=== PATIENT | female | born 1995 | race Caucasian/White ===

== ENCOUNTER 2017-01-26 04:20 | Inpatient (IN) | payer OTHER ==
[~2017-01-26] VITALS: Ht 167.6 cm; Wt 96.6 kg
--- NOTE | ~2017-01-26 | ENPV ---
Vascular Lower Extremities DVT Study Procedure Demographics Patient Name SOPHIE BORGES Date of Study 01/27/2017 Patient Number [id number] Gender Female Date of 1995 Age 21 Visit Number [id number] Height 66 Accession Number [id number] Weight 174 Referring Jose Manuel Hernandez Interpreting Marco Rush MD Physician Physician Mary Lemus MD Physician Ordering Physician Jose Manuel Hernandez Financial Advocate Teasel Gig Operator Latha Feldman BS, RT Conclusions Summary No evidence of deep vein thrombosis or superficial thrombophlebitis in the lower extremities bilaterally . Procedure Type of Study: Veins:Lower Extremities DVT Study, Venous Duplex Lower Extremity Bilateral. Indications for Study:Trauma. Additional Indications:Immobility Patient Status:Routine. Study Location:Inpatient Portable. Technical Quality:Adequate visualization. Velocities are measured in cm/s ; Diameters are measured in cm Right Lower Extremities DVT Study Measurements Right 2D and Doppler Measurements + + + + +------+------+ + !Location !Visualized!Compressibility!Thrombosis!Signal!Reflux!Reflux ! ! ! ! ! ! ! !(sec) ! + + + + +------+------+ + !GSV Thigh !Yes !Yes !None !Phasic!No ! ! + + + + +------+------+ + !Common !Yes !Yes !None !Phasic!No ! ! !Femoral ! ! ! ! ! ! ! + + + + +------+------+ + !Prox !Yes !Yes !None !Phasic!No ! ! !Femoral ! ! ! ! ! ! ! + + + + +------+------+ + !Mid Femoral!Yes !Yes !None !Phasic!No ! ! + + + + +------+------+ + !Dist !Yes !Yes !None !Phasic!No ! ! !Femoral ! ! ! ! ! ! ! + + + + +------+------+ + !Popliteal !Yes !Yes !None !Phasic!No ! ! + + + + +------+------+ + !Gastroc !Yes !Yes !None !Phasic!No ! ! + + + + +------+------+ + !PTV !Yes !Yes !None !Phasic!No ! ! + + + + +------+------+ + !Peroneal !Yes !Yes !None !Phasic!No ! ! + + + + +------+------+ + Left Lower Extremities DVT Study Measurements Left 2D and Doppler Measurements + + + + +------+------+ + !Location !Visualized!Compressibility!Thrombosis!Signal!Reflux!Reflux ! ! ! ! ! ! ! !(sec) ! + + + + +------+------+ + !GSV Thigh !Yes !Yes !None !Phasic!No ! ! + + + + +------+------+ + !Common !Yes !Yes !None !Phasic!No ! ! !Femoral ! ! ! ! ! ! ! + + + + +------+------+ + !Prox !Yes !Yes !None !Phasic!No ! ! !Femoral ! ! ! ! ! ! ! + + + + +------+------+ + !Mid Femoral!Yes !Yes !None !Phasic!No ! ! + + + + +------+------+ + !Dist !Yes !Yes !None !Phasic!No ! ! !Femoral ! ! ! ! ! ! ! + + + + +------+------+ + !Popliteal !Yes !Yes !None !Phasic!No ! ! + + + + +------+------+ + !Gastroc !Yes !Yes !None !Phasic!No ! ! + + + + +------+------+ + !PTV !Yes !Yes !None !Phasic!No ! ! + + + + +------+------+ + !Peroneal !Yes !Yes !None !Phasic!No ! ! + + + + +------+------+ + Signature dtt: RAHEEM FERRARI dtpatricia: 01/27/17 1428 Physician Self Edit
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
--- NOTE | ~2017-01-26 | ENPV ---
Vascular Lower Extremities DVT Study Procedure Demographics Patient Name SOPHIE BORGES Date of Study 01/30/2017 Patient Number [id number] Gender Female Date of 1995 Age 21 Visit Number [id number] Height 66 Accession Number [id number] Weight 174 Referring Larry Harden MD Interpreting Marco Rush MD Physician Jose Manuel Hernandez Physician Mary Lemus MD Physician Ordering Physician Mary Wynne MD Vehicle Body Maker Antionettegrace Hardik T, [facility] Conclusions Summary Normal venous duplex examination of the legs bilaterally with normal venous Doppler signals noted throughout. No evidence of thrombophlebitis is noted bilaterally in the deep and superficial veins of the legs. Small calf thrombi cannot be excluded. Procedure Type of Study: Veins:Lower Extremities DVT Study, Venous Duplex Lower Extremity Bilateral. Indications for Study:Extended bedrest and Trauma. Appropriate Use Criteria:6 Patient Status:Routine. Study Location:Inpatient Portable. Technical Quality:Adequate visualization. Velocities are measured in cm/s ; Diameters are measured in cm Right Lower Extremities DVT Study Measurements Right 2D and Doppler Measurements + + + + +------+------+ + !Location !Visualized!Compressibility!Thrombosis!Signal!Reflux!Reflux ! ! ! ! ! ! ! !(sec) ! + + + + +------+------+ + !GSV Thigh !Yes !Yes !None !Phasic! ! ! + + + + +------+------+ + !Common !Yes !Yes !None !Phasic! ! ! !Femoral ! ! ! ! ! ! ! + + + + +------+------+ + !Prox !Yes !Yes !None !Phasic! ! ! !Femoral ! ! ! ! ! ! ! + + + + +------+------+ + !Mid Femoral!Yes !Yes !None !Phasic! ! ! + + + + +------+------+ + !Dist !Yes !Yes !None !Phasic! ! ! !Femoral ! ! ! ! ! ! ! + + + + +------+------+ + !Popliteal !No ! ! ! ! ! ! + + + + +------+------+ + !PTV !Yes !Yes !None !Phasic! ! ! + + + + +------+------+ + !Peroneal !Yes !Yes !None !Phasic! ! ! + + + + +------+------+ + Left Lower Extremities DVT Study Measurements Left 2D and Doppler Measurements + + + + +------+------+ + !Location !Visualized!Compressibility!Thrombosis!Signal!Reflux!Reflux ! ! ! ! ! ! ! !(sec) ! + + + + +------+------+ + !GSV Thigh !Yes !Yes !None !Phasic! ! ! + + + + +------+------+ + !Common !Yes !Yes !None !Phasic! ! ! !Femoral ! ! ! ! ! ! ! + + + + +------+------+ + !Prox !Yes !Yes !None !Phasic! ! ! !Femoral ! ! ! ! ! ! ! + + + + +------+------+ + !Mid Femoral!Yes !Yes !None !Phasic! ! ! + + + + +------+------+ + !Dist !Yes !Yes !None !Phasic! ! ! !Femoral ! ! ! ! ! ! ! + + + + +------+------+ + !Popliteal !Yes !Yes !None !Phasic! ! ! + + + + +------+------+ + !PTV !Yes !Yes !None !Phasic! ! ! + + + + +------+------+ + !Peroneal !Yes !Yes !None !Phasic! ! ! + + + + +------+------+ + Signature dtt: RAHEEM FERRARI dtpatricia: 01/30/17 1015 Physician Self Edit
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
--- NOTE | ~2017-01-26 | ECHO ---
Transthoracic Echocardiography Report (TTE) Demographics Patient Name SOPHIE BORGES Date of Study 01/27/2017 Patient Number [id number] Visit Number [id number] Date of 1995 Room Number G6201 Accession Number [id number] Gender Female Age 21 year(s) Referring Larry Harden MD Hand Cigar Making Supervisor Savanah Dye RVT, Physician RDCS Physician Interpreting Orin Fajardo MD Candy Attendant Physician Supervising Ordering Physician Mary Lemus MD, MD/P Nurse Stress General Studies Program Chair Conclusions Contractility Score Summary Normal Left Ventricular contractility was noted. Summary Very limited study due to poor visualize. The estimated left ventricular ejection fraction is 60%. The left ventricle is normal in size . No significant valvular abnormalities. Procedure Type of Study TTE procedure:2D Echocardiogram, Echo Limited w/o Contrast. Procedure Date Date: 01/27/2017 Start: 01:31 PM Study Location: Inpatient Portable Technical Quality: Limited visualization due to patient on ventilator. Indications:Shock. Appropriate Use Criteria: 8 Patient Status: Routine Rhythm: Sinus tachycardia HR: 135 bpm BP: 125/56 mmHg M-Mode/2D Measurements EF Estimated: 60 % Doppler Measurements MV Peak E-Wave: 0.35 m/s MV Peak A-Wave: 0.61 m/s MV E/A Ratio: 0.57 Findings Left Ventricle The left ventricle is normal in size . Right Ventricle Normal right ventricular size and function. Left Atrium Normal left atrial size. There is no evidence of patent foramen ovale or atrial septal defect by color Doppler. Right Atrium Normal right atrial size. Mitral Valve Normal mitral valve structure and function. Aortic Valve Normal aortic valve structure and function. Tricuspid Valve Normal tricuspid valve structure and function. Pulmonic Valve Normal pulmonic valve structure and function. Pericardial Effusion Trivial circumferential pericardial effusion. Miscellaneous Visualized portions of the aortic root and ascending aorta appear normal in size. VERY POOR AND LIMITED STUDY Pleural Effusion No evidence of pleural effusion. Contractility Score LV regional wall motion:(0-Non visualized 1-Normal 2-Hypokinesis 3-Akinesis 4-Dyskinesis 5-Aneurysm) Signature dtt: Scotty Sr (cardio) dtd: 01/27/17 1331 Physician Self Edit
--- NOTE | ~2017-01-26 | OR ---
PATIENT'S NAME: SOPHIE BORGES [facility] AGE: 21 Y [address] ROOM: [address] [address] LOCATION: CU ADMIT DATE: 01/26/2017 OR/Procedure Report DISCHARGE DATE: FAMILY PHYSICIAN: ISAAC MARQUEZ ATTENDING PHYSICIAN: Christopher Choi SURGEON: Yolande Castillo MD MARBLE INSTALLER: DATE OF PROCEDURE: 01/30/2017 PREOPERATIVE DIAGNOSIS: Severe head injury. POSTOPERATIVE DIAGNOSIS: Severe head injury. OPERATION PROPOSED AND PERFORMED: 1. Right frontal decompressive craniectomy. 2. Duraplasty. 3. Insertion of Codman fiberoptic ICP sensor. 4. Removal of Licox brain oxygen monitor. 5. Removal of the right ventricular catheter. DESCRIPTION OF PROCEDURE: Under general anesthesia, the patient was positioned supine on a horseshoe headrest with the headrest slanted so that only the occipital portion that is resting on the horseshoe primarily, especially, on the left side where she had a decompressive frontotemporoparietal craniectomy. After positioning her, the right frontal region was prepped and draped in the usual manner. Prior to draping, we removed the Licox bolt and also removed the left lateral ventricular catheter at the level of the scalp. Next, a curvilinear incision was then carried out extending from the frontal region going posteriorly, incorporating the incision for the Licox and ventricular catheter and then going posteriorly curving inferiorly into the area just above the right ear. The ventricular catheter was then removed. Next, the pericranium as well as the temporalis muscle and fascia were reflected as a unit. Multiple noel holes were then carried out in the temporofrontal regions trying to be as close to the midline as possible. A free bone flap was then fashioned out. On removing the free bone flap, the dura was very very tight indicating significant swelling of the hemisphere, and we went ahead and opened the dura in fashion, and on doing this, the brain did pout out. Next, we then got a large piece of dural repair, suturing the dural repair to the edges of the dura leaving a small space anteriorly. Next, in the anterior space, we were going to put in the brain oxygen monitor as well as the ICP monitor; however, the brain oxygen monitor could not be put in. The sheath around the monitor was too stiff, especially, as there was no bone on the dura. We consequently abandoned using the Licox tunneled in brain oxygen monitor and just went ahead and put in the Codman fiberoptic ICP monitor in the right frontal region anteriorly. Next, PATIENT'S NAME: SOPHIE BORGES [facility] AGE: 21 Y [address] ROOM: [place] [address] LOCATION: GICU ADMIT DATE: 01/26/2017 OR/Procedure Report DISCHARGE DATE: FAMILY PHYSICIAN: ISAAC MARQUEZ. ATTENDING PHYSICIAN: Christopher Choi we initially wanted to close the wound in 2 layers, however, the brain was quite swollen and consequently we used 0 Prolene and 2-0 Nurolon to close the scalp in 1 layer. The ICP sensor which was brought out through a separate stab wound was sutured to the scalp. The patient tolerated the procedure well and the ICPs were recorded. Ranged from 5 to 15. The patient was stable throughout the procedure. PREAMBLE: This young lady, who has severe head injury, yesterday had a ventricular catheter put in the left lateral ventricle in the hope that a drainage of CSF will enable us to control the intracranial pressure. Unfortunately, the ventricle was decompressed and consequently the CSF drainage was not copious as one would not have wanted. As a result of this, she had multiple medical management using hypertonic saline, using mannitol, using hyperventilation as best we could. Unfortunately, we could not get the pCO2 down primarily because she then developed what was looking like an early ARDS. In light of all the above problems that we have had and the situation where she had episodes of ICPs going above 30 and that we were at maximum using hypertonic solutions because serum osmolality was quite high and her sodium was equally high, and she had developed renal failure. We consequently elected to go ahead and do a decompressive craniectomy on the right side in the hope that that would also help reduce the intracranial pressure which would then make it much easier to get an adequate cerebral perfusion pressure. I should point out though that throughout this periods of increased intracranial pressure, the perforation pressures were above 60 all the while. MD KEV RUANO/modl /[id number] d: 01/31/17 0144 t: 02/28/17 1218, OPERATIVE SUMMARY
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
--- NOTE | ~2017-01-26 | OR ---
PATIENT'S NAME: SOPHIE BORGES [facility] AGE: 21 Y [address] ROOM: [address] [address] LOCATION: [facility] ADMIT DATE: 01/26/2017 OR/Procedure Report DISCHARGE DATE: FAMILY PHYSICIAN: PHYSICIAN, UNKNOWN ATTENDING PHYSICIAN: Christopher Choi SURGEON: Yolande Castillo MD EXECUTIVE ASSOCIATE: DATE OF PROCEDURE: 01/26/2017 PREOPERATIVE DIAGNOSIS: Severe head injury with increase in intracranial pressure. POSTOPERATIVE DIAGNOSIS: Severe head injury with increase in intracranial pressure. OPERATION PROPOSED: 1. Left frontotemporoparietal decompressive craniectomy. 2. Duraplasty. OPERATION PERFORMED: 1. Decompressive left frontotemporoparietal craniectomy. 2. Duraplasty. 3. Evacuation of a left acute subdural hematoma in the frontal region. 4. Evacuation of a thin film of subdural hematoma also in the frontoparietal area. DESCRIPTION OF PROCEDURE: Under general anesthesia, the patient was positioned prone. The head was tilted to the right. The left frontotemporoparietal occipital region was shaved, prepped, and draped in the usual fashion. Next, a large question brittney incision was carried out extending from the zygoma superiorly and posteriorly and then anteriorly to the frontal region and encompassing the temporal, frontal, and parietal regions. The temporalis muscle and fascia was incised with Bovie as well as the pericranium and this was reflected as a unit with the scalp. Next, multiple noel holes were carried out and the free bone flap was then removed. The finding here on reflecting the scalp, it did have a diastatic fracture involving the coronal suture extending all the way across to the midline and going all the way down to the base of the skull. Having turned the bone flap, there was an epidural hematoma in the frontal region, this was easily evacuated, and on opening the dura to do duraplasty, there was a thin film of subdural hematoma, which we evacuated, and after that was done, we then got a large piece of dural repair; and using the dural repair, we added this to the patient's dura so as to create extra room for the brain to swell into. After we had finished the duraplasty, we controlled the hematoma with the hemorrhage with bipolar cautery as well as pieces of Surgicel tucked under the edges of the bone in PATIENT'S NAME: SOPHIE BORGES [facility] AGE: 21 Y [address] ROOM: [address] [address] LOCATION: [facility] ADMIT DATE: 01/26/2017 OR/Procedure Report DISCHARGE DATE: FAMILY PHYSICIAN: PHYSICIAN, UNKNOWN ATTENDING PHYSICIAN: Christopher Choi order to stop any epidural ooze from the dura postdecompression. After we had been satisfied that this had been achieved, we then sutured the scalp as a single layer using 3-0 Nurolon continuous mattress sutures. Following the end of the procedure, the intracranial pressure was reading 6 cm of water both the sensor in the Licox as well as the Codman ventricular ICP sensor. The patient tolerated the procedure well and was taken back to the Intensive Care Unit. The preamble here is that the patient who had earlier this morning had a right frontal ventriculostomy put in along with an insertion of the Licox started getting into trouble after she went on to have a CT scan of the brain. The ICP at one stage went up to 30 though when we started this morning after we inserted the ICP monitor was all reading 6 and there was not too much CSF left to be drained primarily because the CT scan of the brain that was done at that time showed that the ventricle was completely decompressed as it was just barely visible. As a result of the fact that the ICP had gradually climbed up, we were having to literally leave the ventricle open; and at this stage, we were not getting much fluid out of the ventricle and the ICPs was approaching 20, I elected to go ahead and do a decompressive craniectomy with duraplasty so as to at least create room for the brain to swell into and thus reduce the intracranial pressure. That was the rationale for bringing her back to the operating room to do what we did. MD KEV RUANO/gisell /[id number] d: 01/27/17 0231 t: 02/28/17 1213, OPERATIVE SUMMARY
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
[2017-01-26 04:59] LABS: HEMOGLOBIN 14.4 g/dL (11.0-15.0); MCH 29.1 pg (27.0-34.0); MCV 80.8 fl (83.0-98.0); MPV 8.7 fl (9.4-12.4); PLATELET COUNT 224 K/uL (150-450); RBC 4.95 M/uL (3.50-5.00); RDW-CV 15.9 % (11.9-14.6)
[2017-01-26 05:06] LABS: WBC 26.4 K/uL (4.0-11.0)
[2017-01-26 05:16] LABS: INR - (THERAPEUTIC) 1.28 (0.92-1.07); PROTIME 13.5 SECONDS (9.8-11.4); PTT 26 SECONDS (25-32)
[2017-01-26 05:23] LABS: BICARBONATE 19.2 mmol/L (18.0-23.0); PCO2 40 mmHg (35-45); PO2 96 mmHg (80-90)
[2017-01-26 05:24] LABS: BLOOD UREA NITROGEN 11 mg/dL (6-24); CHLORIDE 109 mMol/L (96-110); CREATININE 0.8 mg/dL (0.5-1.1); ESTIMATED GFR (MDRD EQUATION) > 60; SODIUM 139 mEq/L (135-145)
[2017-01-26 05:27] LABS: ABSOLUTE NEUTROPHIL CT (ANC) 22.2 K/uL (1.8-7.8); BANDED NEUTROPHIL # 4.8 K/uL (0.0-0.1); BANDED NEUTROPHILS % 18 %; LYMPHOCYTE # 2.4 K/uL (0.8-4.0); LYMPHOCYTE % 9 %; MONOCYTE # 1.6 K/uL (0.0-1.0); SEGMENTED NEUTROPHIL # 17.4 K/uL (1.8-7.8); SEGMENTED NEUTROPHIL % 66 %
[2017-01-26 08:01] LABS: BICARBONATE 20.1 mmol/L (18.0-23.0); LACTATE 3.9 mEq/L (0.50-1.60); PCO2 39 mmHg (35-45)
[2017-01-26 08:03] LABS: BASOPHIL % 0.1 %; HEMOGLOBIN 10.5 g/dL (11.0-15.0); IMMATURE GRANULOCYTE # 0.2 K/uL (0.0-0.3); LYMPHOCYTE # 1.1 K/uL (0.8-4.0); LYMPHOCYTE % 4.4 %; MCV 81.1 fl (83.0-98.0); MONOCYTE # 2.2 K/uL (0.0-1.0); MONOCYTE % 9.1 %; MPV 8.6 fl (9.4-12.4); NEUTROPHIL # (ANC) 20.4 K/uL (1.8-7.8); NEUTROPHIL % 85.4 %; NRBC % 0.1 /100WBC (0-0.00); PLATELET COUNT 200 K/uL (150-450); RDW-CV 16.3 % (11.9-14.6)
[2017-01-26 08:04] LABS: PO2 139 mmHg (80-90)
[2017-01-26 08:06] LABS: HEMATOCRIT 29.2 % (33.0-46.0); MCH 29.2 pg (27.0-34.0); WBC 23.9 K/uL (4.0-11.0)
[2017-01-26 08:13] LABS: INR - (THERAPEUTIC) 1.4 (0.92-1.07); PROTIME 14.8 SECONDS (9.8-11.4)
[2017-01-26 08:17] LABS: ALBUMIN 2.4 gm/dL (3.5-5.0); ALK PHOS 47 IU/L (33-138); ALT 122 IU/L (12-78); AST 180 IU/L (10-40); BLOOD UREA NITROGEN 10 mg/dL (6-24); CHLORIDE 115 mMol/L (96-110); CO2 20 mMol/L (22-32); ESTIMATED GFR (MDRD EQUATION) > 60; MAGNESIUM 2.1 mg/dL (1.8-2.6); POTASSIUM 3.9 mMol/L (3.7-5.1); TOTAL BILIRUBIN 0.8 mg/dL (0.0-1.5)
[2017-01-26 08:26] LABS: ANION GAP 15.9 (10.0-19.0); SODIUM 147 mMol/L (135-145); TOTAL PROTEIN 4.3 g/dL (6.0-8.4)
[2017-01-26 08:36] LABS: BICARBONATE 17.7 mmol/L (18.0-23.0); PCO2 41 mmHg (35-45); PO2 87 mmHg (80-90)
[2017-01-26 08:37] LABS: SODIUM 139 mEq/L (135-145)
[2017-01-26] MEDS ORDERED: ADVIL200 MG PO (12:17)
[2017-01-26] MEDS ORDERED: TUMS REGULAR ST1 TAB PO (12:18)
[2017-01-26 13:03] LABS: PCO2 40 mmHg (35-45)
[2017-01-26 13:08] LABS: BICARBONATE 14.9 mmol/L (18.0-23.0); PO2 64 mmHg (80-90)
[2017-01-26 13:09] LABS: LACTATE 8.3 mEq/L (0.50-1.60)
[2017-01-26 13:16] LABS: ANION GAP 19.9 (10.0-19.0); MAGNESIUM 3.1 mg/dL (1.8-2.6); POTASSIUM 4.9 mMol/L (3.7-5.1)
[2017-01-26 16:17] LABS: PO2 71 mmHg (80-90)
[2017-01-26 16:22] LABS: BICARBONATE 20.8 mmol/L (18.0-23.0); PCO2 57 mmHg (35-45)
[2017-01-26 16:23] LABS: LACTATE 9.7 mEq/L (0.50-1.60)
[2017-01-26 16:31] LABS: CREATININE 1.3 mg/dL (0.5-1.1); POTASSIUM 4.5 mMol/L (3.7-5.1)
[2017-01-26 16:32] LABS: ANION GAP 19.5 (10.0-19.0); CALCIUM 6.3 mg/dL (8.5-10.5)
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
--- NOTE | 2017-01-26 19:17 | NUR ---
Significant Event: Patient intubated, FIO2 @ 100%.Was on fentanyl gtt, now discontinued and pentobarb started to keep at 3mcg/kg/h. BIS monitor initiated just prior to second OR of the day. Came to ICU at 0717 from OR ICP/ventric placed. Opened ventric several times today to keep ICP<15. Drained total of 27 light pink tinged CSF. PRN vecuronium given multiple times. Slight spontaneous movement in lower extremities with painful stimuli only. Overbreathes set vent rate at times. Does not open eyes/or follow commands. Stopped withdrawing to painful stimuli after 1200 assessment. CPP to keep 60-80, multile checo boluses given. Checo gtt at 2mcg/kg/min, levophed gtt at .4mcg/kg/min. 5 1L isolate fluid boluses given. PRN mannitol given x1. Went to CT today. Bronchoscopy at bedside done. Slightly coarse-coarse lung sounds throughout. ETCO2 18-30. PIP 22-27. Two ICP/VEntric sites, one via codman and one via bolt. on lipcott to keep ptbo2 >20 and temp 36-36.6. Rare bowel sounds. No BM. Cates patent, increased UOP, see sliding scale ddavp orders. OGT to LIS, light brown secretions noted.Highland traction 5lb to right leg. Did not turn patinet do to instability. CVP 4-10. Patient went back to OR for bone flap. doing Right femur pinning while patient is in OR for bone flap.PRN tylenol given x1 for temp 37.8degC. Follow up:continue to monitor.CT of right hip order in, still needs done, patient to unstable to complete today, Dr. Klein aware
[2017-01-26 21:39] LABS: BICARBONATE 22.6 mmol/L (18.0-23.0); PCO2 54 mmHg (35-45); PO2 57 mmHg (80-90)
[2017-01-26 21:50] LABS: BICARBONATE 20.4 mmol/L (18.0-23.0); PCO2 51 mmHg (35-45); PO2 61 mmHg (80-90); POTASSIUM 4.2 mEq/L (3.7-5.1); SODIUM 153 mEq/L (135-145)
[2017-01-26 21:51] LABS: BICARBONATE 19.9 mmol/L (18.0-23.0); PCO2 52 mmHg (35-45); PO2 59 mmHg (80-90); POTASSIUM 3.4 mEq/L (3.7-5.1); SODIUM 154 mEq/L (135-145)
[2017-01-26 21:55] LABS: CREATININE 1.3 mg/dL (0.5-1.1); MAGNESIUM 2.5 mg/dL (1.8-2.6); PHOSPHORUS 4.4 mg/dL (2.5-4.9)
[2017-01-26 21:56] LABS: ALBUMIN 1.6 gm/dL (3.5-5.0); CALCIUM 7.1 mg/dL (8.5-10.5)
[2017-01-27 03:24] LABS: PCO2 52 mmHg (35-45)
[2017-01-27 03:30] LABS: BICARBONATE 29.4 mmol/L (18.0-23.0); PO2 49 mmHg (80-90)
[2017-01-27 03:46] LABS: CALCIUM 7.5 mg/dL (8.5-10.5); CREATININE 1.2 mg/dL (0.5-1.1); MAGNESIUM 2.5 mg/dL (1.8-2.6)
[2017-01-27 03:47] LABS: TOTAL BILIRUBIN 0.6 mg/dL (0.0-1.5); TOTAL PROTEIN 4.1 g/dL (6.0-8.4)
[2017-01-27 03:58] LABS: HEMOGLOBIN 11.4 g/dL (11.0-15.0); MCH 29.7 pg (27.0-34.0); MCHC 35.6 gm/dL (32.0-36.5); MCV 83.3 fl (83.0-98.0); MPV 10.8 fl (9.4-12.4); RBC 3.84 M/uL (3.50-5.00)
[2017-01-27 04:02] LABS: WBC 30.1 K/uL (4.0-11.0)
[2017-01-27 04:03] LABS: INR - (THERAPEUTIC) 1.36 (0.92-1.07); PLATELET COUNT 80 K/uL (150-450); PROTIME 14.3 SECONDS (9.8-11.4); PTT 38 SECONDS (25-32)
--- NOTE | 2017-01-27 05:04 | NUR ---
Patient was in surgery until 21:00 this shift. Patient was placed back on the vent after surgery. FiO2 currently 100% for O2 sats of 86-89%. PEEP was increased to 15 this shift due to low PO2 level on ABG lab draw. ETT was secured with an ETAD 24cm at the teeth. ETCO2 was 17-18 this shift. Breathsounds slightly coarse throughout bilaterally. Suctioning small to moderate thick white secretions. Will continue to monitor patient.
[2017-01-27 05:19] LABS: ABSOLUTE NEUTROPHIL CT (ANC) 25.6 K/uL (1.8-7.8); BANDED NEUTROPHILS % 40 %; LYMPHOCYTE # 3.3 K/uL (0.8-4.0); LYMPHOCYTE % 11 %; MONOCYTE # 1.2 K/uL (0.0-1.0); SEGMENTED NEUTROPHIL # 13.6 K/uL (1.8-7.8); SEGMENTED NEUTROPHIL % 45 %
--- NOTE | 2017-01-27 06:47 | NUR ---
patient is in induced comma with pentobarb at 1 meq/kg/h,pupils are unequal in size,rt is sluggish,lt is fixed,clear upper lungs sound diminished on the bases,a/c vent mode peep=15,gqv3=531%,w4htm=90%,dr velazquez was updated,abd is soft no bowel movement,bowel sounds are presented. FOLLOW UP:patient's family was updated on am by dr bonner on the severity of patient's condition,keep monitoring neuro and hemodynamic status closely
[2017-01-27 08:26] LABS: BICARBONATE 32.6 mmol/L (18.0-23.0); PCO2 48 mmHg (35-45)
[2017-01-27 08:30] LABS: PO2 41 mmHg (80-90)
[2017-01-27 10:14] LABS: BICARBONATE 32.1 mmol/L (18.0-23.0); PCO2 53 mmHg (35-45)
[2017-01-27 10:15] LABS: PO2 55 mmHg (80-90)
[2017-01-27 12:13] LABS: BICARBONATE 33.7 mmol/L (18.0-23.0); PCO2 52 mmHg (35-45); PO2 56 mmHg (80-90)
[2017-01-27 12:20] LABS: LACTATE 6.6 mEq/L (0.50-1.60)
[2017-01-27 12:28] LABS: MAGNESIUM 2.6 mg/dL (1.8-2.6)
--- NOTE | 2017-01-27 12:53 | NUR ---
Chart Reviewed. Family is not in the room at this time. Will continue to follow.
[2017-01-27 15:05] LABS: ANION GAP 10.9 (10.0-19.0); POTASSIUM 3.9 mMol/L (3.7-5.1)
--- NOTE | 2017-01-27 17:02 | NUR ---
SIGNIFICANT EVENT: PATIENT ON PENTOBARBITAL DRIP INFUSING AT 1 MCG/KG/HR. PATIENT DOES NOT OPEN EYES TO PAIN, VOICE, OR SPONT. PUPILS UNEQUAL, SLUGGISH REACTION IN R) EYE, L) FIXED. PATIENT DOES NOT FOLLOW ANY COMMANDS, DOES NOT WITHDRAW TO PAIN. PATIENT DOES NOT HAVE ANY SPONT MOVEMENTS. PATIENT DOES NOT NOD YES/NO TO QUESTIONS. ICP/VENTRIC/BOLT INTACT. NO DRAINAGE AROUND SITE. ICP 20-26 THIS SHIFT, VENTRIC OPEN AT ALL TIMES. TOTAL OF 23 ML OF CSF DRAINED THIS SHIFT, CLEAR COLORED. BIS MONITOR ON AT ALL TIMES, BIS 13-23, SQI 100%, SR 40-60S. PATIENT CONTINUES TO REQUIRE VENT SUPPORT, A/C MODE, RR SET AT 25 NOW, DOES NOT OVER BREATH, FIO2 100%, TV 500, PEEP INCREASED TO 15. APRV MODE TRIALED FOR A FEW HOURS, DID NOT TOLERATE WELL. ETCO2 17-20S. NO SPONT/INDUCED COUGH. MINIMAL SECRETIONS THROUGH ET TUBE. PATIENT HAS BEEN IN SINUS TACHY RHYTHM, HR 150S AT THE BEGINING OF THE SHIFT, NOW 110S. PULSES INTACT THROUGHOUT, DOPPPLERED PULSES IN LOWER EXTREMITIES TO VERIFY PALPITATIONS, NO COMPLICATIONS. BP STABLE WITH LEVOPHED OVERMAXED AT 0.4 MCG/KG/MIN, KIRSTIN OVERMAXED AT 2.6 MCG/KG/MIN, VASOPRESSIN AT 0.04 UNITS/MIN. SBP 90-140S, MAP>65, CPP>60. MAX TEMP OF 37.7, MD AWARE. COOLING BLANKET ON, TYLENOL 650 GIVEN X1, RELIEF NOTED. BOWEL SOUNDS RARE, NO BM. TUBE FEEDING OSMOLITE INFUSING AT 10ML/HR, NO RESIDUALS. ACCU CHECKS EVERY 4 HOURS. PATIENT REPOSITIONED EVERY 2 HOURS. NO NEW SKIN ISSUES NOTED. VARMA INTACT, ADEQUATE URINE OUTPUT. MANNITOL GIVEN X1, LASIX GIVEN X1 TODAY. NO COMPLICATIONS WITH R) IJ. R) ART LINE. ETT COMPLETED AT BEDSIDE. VENOUS DUPLEX COMPLETED AT BEDISDE. FOLLOW UP: CONT TO MONITOR
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
[2017-01-27 18:18] LABS: HEMATOCRIT 28.5 % (33.0-46.0); MCH 29.4 pg (27.0-34.0); MCHC 35.1 gm/dL (32.0-36.5); MCV 83.8 fl (83.0-98.0); MPV 10.1 fl (9.4-12.4); RDW-CV 17.3 % (11.9-14.6)
[2017-01-27 18:21] LABS: PLATELET COUNT 63 K/uL (150-450); WBC 25.4 K/uL (4.0-11.0)
[2017-01-27 18:28] LABS: INR - (THERAPEUTIC) 1.33 (0.92-1.07); PTT 38 SECONDS (25-32)
[2017-01-27 18:30] LABS: BICARBONATE 33.2 mmol/L (18.0-23.0); MAGNESIUM 2.4 mg/dL (1.8-2.6); PCO2 50 mmHg (35-45); PO2 56 mmHg (80-90)
[2017-01-27 18:33] LABS: LACTATE 4.7 mEq/L (0.50-1.60)
[2017-01-27 19:26] LABS: ABSOLUTE NEUTROPHIL CT (ANC) 22.4 K/uL (1.8-7.8); BANDED NEUTROPHIL # 14.5 K/uL (0.0-0.1); BANDED NEUTROPHILS % 57 %; LYMPHOCYTE # 2.5 K/uL (0.8-4.0); LYMPHOCYTE % 10 %; MONOCYTE # 0.5 K/uL (0.0-1.0); SEGMENTED NEUTROPHIL # 7.9 K/uL (1.8-7.8); SEGMENTED NEUTROPHIL % 31 %
[2017-01-27 20:32] LABS: BICARBONATE 31.3 mmol/L (18.0-23.0); HEMOGLOBIN 9.6 g/dL (11.0-15.0); MCH 29.5 pg (27.0-34.0); MCHC 35.6 gm/dL (32.0-36.5); MCV 83.1 fl (83.0-98.0); MPV 10.8 fl (9.4-12.4); PCO2 42 mmHg (35-45); PO2 57 mmHg (80-90); RBC 3.25 M/uL (3.50-5.00); RDW-CV 17.2 % (11.9-14.6)
[2017-01-27 20:33] LABS: LACTATE 5.5 mEq/L (0.50-1.60)
[2017-01-27 20:35] LABS: PLATELET COUNT 89 K/uL (150-450)
[2017-01-27 20:39] LABS: INR - (THERAPEUTIC) 1.33 (0.92-1.07)
[2017-01-27 20:41] LABS: MAGNESIUM 2.3 mg/dL (1.8-2.6)
[2017-01-27 21:04] LABS: ABSOLUTE NEUTROPHIL CT (ANC) 23.1 K/uL (1.8-7.8); BANDED NEUTROPHIL # 12.7 K/uL (0.0-0.1); BANDED NEUTROPHILS % 49 %; LYMPHOCYTE # 2.6 K/uL (0.8-4.0); LYMPHOCYTE % 10 %; MONOCYTE # 0.3 K/uL (0.0-1.0); SEGMENTED NEUTROPHIL # 10.4 K/uL (1.8-7.8); SEGMENTED NEUTROPHIL % 40 %
[2017-01-27 21:10] LABS: ALBUMIN 2.1 gm/dL (3.5-5.0); ANION GAP 10.8 (10.0-19.0); BLOOD UREA NITROGEN 12 mg/dL (6-24); CALCIUM 8.2 mg/dL (8.5-10.5); CHLORIDE 115 mMol/L (96-110); CO2 29 mMol/L (22-32); CREATININE 1.1 mg/dL (0.5-1.1); ESTIMATED GFR (MDRD EQUATION) > 60; PHOSPHORUS 2.3 mg/dL (2.5-4.9); POTASSIUM 3.8 mMol/L (3.7-5.1)
[2017-01-27 21:20] LABS: SODIUM 151 mMol/L (135-145)
[2017-01-28 01:47] LABS: HEMATOCRIT 26.3 % (33.0-46.0); HEMOGLOBIN 9.2 g/dL (11.0-15.0); MCH 29.2 pg (27.0-34.0); MCV 83.5 fl (83.0-98.0); MPV 10.7 fl (9.4-12.4); RBC 3.15 M/uL (3.50-5.00); RDW-CV 17.3 % (11.9-14.6)
[2017-01-28 01:48] LABS: BICARBONATE 30.4 mmol/L (18.0-23.0); PCO2 39 mmHg (35-45); PO2 54 mmHg (80-90)
[2017-01-28 01:50] LABS: PLATELET COUNT 115 K/uL (150-450); WBC 25.3 K/uL (4.0-11.0)
[2017-01-28 01:54] LABS: LACTATE 5.5 mEq/L (0.50-1.60)
[2017-01-28 02:07] LABS: ALBUMIN 2.3 gm/dL (3.5-5.0); ALK PHOS 66 IU/L (33-138); ALT 95 IU/L (12-78); CALCIUM 9.5 mg/dL (8.5-10.5); CHLORIDE 113 mMol/L (96-110); CO2 28 mMol/L (22-32); ESTIMATED GFR (MDRD EQUATION) > 60; POTASSIUM 3.8 mMol/L (3.7-5.1)
[2017-01-28 02:12] LABS: ANION GAP 13.8 (10.0-19.0); MAGNESIUM 2.8 mg/dL (1.8-2.6); SODIUM 151 mMol/L (135-145); TOTAL BILIRUBIN 0.9 mg/dL (0.0-1.5)
[2017-01-28 02:13] LABS: ABSOLUTE NEUTROPHIL CT (ANC) 21.8 K/uL (1.8-7.8); BANDED NEUTROPHIL # 7.1 K/uL (0.0-0.1); BANDED NEUTROPHILS % 28 %; LYMPHOCYTE % 12 %; SEGMENTED NEUTROPHIL # 14.7 K/uL (1.8-7.8); SEGMENTED NEUTROPHIL % 58 %
[2017-01-28 02:14] LABS: MONOCYTE # 0.5 K/uL (0.0-1.0)
[2017-01-28 02:15] LABS: AST 111 IU/L (10-40); BLOOD UREA NITROGEN 11 mg/dL (6-24)
--- NOTE | 2017-01-28 04:04 | NUR ---
Pt continued on vent support t/o shift, 100% Fio2, Peep 15. Increased RR to 31. Lung sounds slightly coarse uppers, diminished bases, no cough due to sedation, sxn scant clear. Will continue to monitor and wean as tolerated.
[2017-01-28 05:59] LABS: POTASSIUM 3.7 mMol/L (3.7-5.1)
[2017-01-28 06:00] LABS: ANION GAP 13.7 (10.0-19.0)
--- NOTE | 2017-01-28 07:51 | NUR ---
Significant Event: MANNITOL GIVEN X3. ICP 14-30. VENTRIC DRAINED 33ML CLEAR CSF OVERNIGHT. L) PUPIL FIXED MOST OF NIGHT, SLUGGISH X1 WHEN ICP <20. HR 100-110'S. KIRSTIN WEANED TO 1.6MCG/KG/MIN. RR INCREASED TO 33. GAVE 3% SALINE 50ML BOLUS X1. PENTOBARBITOL INCREASED TO 5MG/KG/HR THIS AM, GAVE SEVERAL BOLUSES OVERNIGHT IN ATTEMPTS TO DECREASE ICP AND BIS, MINIMAL RESULTS. LUNG SOUNDS SLIGHTLY COARSE T/O. RARE BOWEL SOUNDS. NO RESIDAULS. NO BM. ADEQUATE UOP. SLIGHT TURNES Q2HR, DOES HAVE SLIGHT DECREASE IN SPO2 AND PBO2 WITH TURNS, TAKES SEVERAL MINUTES TO RECOVER. 5LB TRACTION TO R) LEG. REPLACED 4GRAMS MGSO4, 2GRAMS CACL. Follow up: BRANDI TO MONITOR
[2017-01-28 08:01] LABS: BICARBONATE 28.7 mmol/L (18.0-23.0); PCO2 36 mmHg (35-45)
[2017-01-28 08:02] LABS: PO2 105 mmHg (80-90)
[2017-01-28 08:09] LABS: ANION GAP 12.7 (10.0-19.0); POTASSIUM 3.7 mMol/L (3.7-5.1)
[2017-01-28 12:18] LABS: BICARBONATE 28.6 mmol/L (18.0-23.0); PCO2 35 mmHg (35-45); PO2 84 mmHg (80-90)
[2017-01-28 12:27] LABS: MAGNESIUM 2.5 mg/dL (1.8-2.6); POTASSIUM 3.7 mMol/L (3.7-5.1)
[2017-01-28 12:28] LABS: ANION GAP 13.7 (10.0-19.0)
[2017-01-28 17:33] LABS: BICARBONATE 27.3 mmol/L (18.0-23.0); PCO2 35 mmHg (35-45); PO2 71 mmHg (80-90)
[2017-01-28 17:39] LABS: LACTATE 6.7 mEq/L (0.50-1.60)
[2017-01-28 17:48] LABS: ALBUMIN 2.2 gm/dL (3.5-5.0); BLOOD UREA NITROGEN 11 mg/dL (6-24); CALCIUM 7.8 mg/dL (8.5-10.5); CO2 26 mMol/L (22-32); ESTIMATED GFR (MDRD EQUATION) > 60; POTASSIUM 3.5 mMol/L (3.7-5.1)
[2017-01-28 17:50] LABS: ANION GAP 13.5 (10.0-19.0); CHLORIDE 120 mMol/L (96-110); MAGNESIUM 2.8 mg/dL (1.8-2.6); SODIUM 156 mMol/L (135-145)
[2017-01-28 17:51] LABS: INR - (THERAPEUTIC) 1.2 (0.92-1.07); PROTIME 12.6 SECONDS (9.8-11.4)
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
--- NOTE | 2017-01-28 18:49 | NUR ---
Significant Event:NEURO: Pentabarbital gtt to 2 mg/kg/hr. SR > 90. No cough, no gag, no withdrawal. Pupils unequal and sluggish. [place] ICP 20-22. CSF 4-6 ml/hr. PbO2 mid 30s-low 40s. RESP: FiO2 weaned to 60%, PEEP 15. Slightly coarse lung sounds. GI: Residuals 140-240 ml. Tube feeding at 20 ml/hr. No BM. CARDIO: CPPs 60-90 on Neosynephrine, Levophed, Vasopressin. Afebrile. 97.8 temp. Follow up: Hold Pentabarbital boluses unless SR<90 and ICP >20.
[2017-01-28 20:43] LABS: BICARBONATE 27.8 mmol/L (18.0-23.0); PCO2 34 mmHg (35-45); PO2 72 mmHg (80-90)
[2017-01-28 21:31] LABS: ANION GAP 14.5 (10.0-19.0); POTASSIUM 3.5 mMol/L (3.7-5.1)
[2017-01-29 01:15] LABS: BICARBONATE 26.9 mmol/L (18.0-23.0); PCO2 33 mmHg (35-45); PO2 76 mmHg (80-90)
[2017-01-29 01:25] LABS: LACTATE 5.3 mEq/L (0.50-1.60)
[2017-01-29 01:31] LABS: ALBUMIN 2.2 gm/dL (3.5-5.0); ALK PHOS 71 IU/L (33-138); ALT 92 IU/L (12-78); ANION GAP 14.7 (10.0-19.0); AST 95 IU/L (10-40); BLOOD UREA NITROGEN 13 mg/dL (6-24); CALCIUM 7.8 mg/dL (8.5-10.5); CHLORIDE 122 mMol/L (96-110); CO2 25 mMol/L (22-32); CREATININE 0.9 mg/dL (0.5-1.1); ESTIMATED GFR (MDRD EQUATION) > 60; MAGNESIUM 2.3 mg/dL (1.8-2.6); POTASSIUM 3.7 mMol/L (3.7-5.1); SODIUM 158 mMol/L (135-145); TOTAL BILIRUBIN 0.8 mg/dL (0.0-1.5); TOTAL PROTEIN 5.2 g/dL (6.0-8.4)
[2017-01-29 01:37] LABS: HEMATOCRIT 22.8 % (33.0-46.0); MCH 29.5 pg (27.0-34.0); MCHC 34.6 gm/dL (32.0-36.5); MCV 85.1 fl (83.0-98.0); MPV 11.7 fl (9.4-12.4); PLATELET COUNT 87 K/uL (150-450); RBC 2.68 M/uL (3.50-5.00); RDW-CV 17.8 % (11.9-14.6)
[2017-01-29 01:39] LABS: HEMOGLOBIN 7.9 g/dL (11.0-15.0); WBC 24.9 K/uL (4.0-11.0)
[2017-01-29 02:14] LABS: ABSOLUTE NEUTROPHIL CT (ANC) 23.7 K/uL (1.8-7.8); BANDED NEUTROPHILS % 28 %; LYMPHOCYTE # 0.7 K/uL (0.8-4.0); LYMPHOCYTE % 3 %; MONOCYTE # 0.7 K/uL (0.0-1.0); SEGMENTED NEUTROPHIL # 16.7 K/uL (1.8-7.8); SEGMENTED NEUTROPHIL % 67 %
--- NOTE | 2017-01-29 04:47 | NUR ---
Significant Event: ICP 20-32. GAVE 30 GRAMS MANNITOL X1. 15ML OF 23.4% SALINE X1. VECURONIUM 8 MG X1. ICP IMPROVED AT TIMES. VENTRIC REMAINS OPEN AT ALL TIMES. 43ML OF CLEAR CSF DRAINED. R) PUPIL IS NOW LARGER THAN LEFT, BOTH ARE SLUGGISH. PENT DOWN TO 1MHKH/HR PER MD ORDER. HR 100-110'S. KIRSTIN WEANED TO 1 MCG/KG/MIN AT THIS TIME. LEVO REMAINS AT 0.4MCG/KG/MIN, VASO AT 0.04UNITS/MIN. PEEP DECREASED TO 8, RR INCREASED TO 36, FIO2 DOWN TO 50%. LUNG SOUNDS REMAIN SLIGHTLY COARSE. 0300 RESIDUAL WAS 520ML, GAVE 500ML BACK, STOPPED TUBE FEEDING PER PROTOCL, WILL RECHECK AFTER 2 HRS. BOWEL SOUNDS ABSENT THIS AM. WILL NOTIFY MD. TREATED ALL ACCUCHECKS. ADEQUATE UOP. TURNED Q2HR. FAMILY UPDATED, QUESTIONS ANSWERED. Follow up:
[2017-01-29 07:07] LABS: BICARBONATE 26.1 mmol/L (18.0-23.0); PCO2 32 mmHg (35-45); PO2 91 mmHg (80-90)
[2017-01-29 07:20] LABS: POTASSIUM 3.6 mMol/L (3.7-5.1)
[2017-01-29 07:23] LABS: ANION GAP 13.6 (10.0-19.0)
--- NOTE | 2017-01-29 10:53 | NUR ---
A - NUTRITION F/U. SEDATED ON VENT. ICP/VENTRIC IN PLACE. NA+ 158, K+ 3.6, GLU 187, BUN/SEAT MAKER 13/0.9, ALB 2.2, WBC 24.9. PT W/ 1+ UE AND 2+ BLE EDEMA. TF ON HOLD LAST NOC FOR RESIDUALS HIGH 520 ML. RESIDUAL DOWN TO 140 ML THIS AM SO OSMOLITE RESTARTED THIS AM AT 10 ML/HR. BS ABSENT. GOOD UOP. D - AT RISK W/ INABLILITY TO TAKE PO R/T RELIANCE ON VENT AEB TF. I - GOAL: ADVANCE TF TOWARD GOAL RATE TOLERATED. M/E - ADVANCE TF WHEN APPROPRIATE; GOAL RATE FOR OSMOLITE 1.5 IS 65 ML/HR. WILL F/U IN 1-2 DAYS.
[2017-01-29 11:25] LABS: BICARBONATE 29.5 mmol/L (18.0-23.0); PCO2 37 mmHg (35-45); PO2 78 mmHg (80-90)
[2017-01-29 11:34] LABS: LACTATE 4.5 mEq/L (0.50-1.60)
[2017-01-29 12:33] LABS: MAGNESIUM 2.5 mg/dL (1.8-2.6); POTASSIUM 3.3 mMol/L (3.7-5.1)
[2017-01-29 12:34] LABS: ANION GAP 11.3 (10.0-19.0)
[2017-01-29 15:18] LABS: BICARBONATE 28.1 mmol/L (18.0-23.0); PCO2 36 mmHg (35-45); PO2 61 mmHg (80-90)
[2017-01-29 15:32] LABS: POTASSIUM 3.2 mMol/L (3.7-5.1)
[2017-01-29 15:34] LABS: ANION GAP 11.2 (10.0-19.0)
--- NOTE | 2017-01-29 18:51 | NUR ---
Significant Event: NEURO; Patient's ICP's climbed throughout the shift from 22 to 38 when she left for left frontal ventriculostomy placement at 1730. 23.4% NaCl given x 2 this shift, as well as 3 Pentobarbital boluses. [address] scan at 1230. CARDIO: Levophed, vasopressin and mae-synephrine gtts. Afebrile. CPP 60-80. GI: No BM. SEDATION: Pentobarbital 1 mg/kg/hr. BLOOD: 1 unit platelets given for platelet level of 42.
[2017-01-29 19:45] LABS: BICARBONATE 28.2 mmol/L (18.0-23.0); PCO2 37 mmHg (35-45); PO2 64 mmHg (80-90)
[2017-01-29 19:50] LABS: LACTATE 4.2 mEq/L (0.50-1.60)
[2017-01-29 19:59] LABS: ALBUMIN 2.3 gm/dL (3.5-5.0); CO2 27 mMol/L (22-32); ESTIMATED GFR (MDRD EQUATION) > 60; POTASSIUM 3.7 mMol/L (3.7-5.1); SODIUM 159 mMol/L (135-145)
[2017-01-29 20:00] LABS: ANION GAP 11.7 (10.0-19.0); BLOOD UREA NITROGEN 21 mg/dL (6-24); CALCIUM 7.4 mg/dL (8.5-10.5); CHLORIDE 124 mMol/L (96-110); MAGNESIUM 3.1 mg/dL (1.8-2.6)
[2017-01-29 22:01] LABS: BICARBONATE 27.6 mmol/L (18.0-23.0); PCO2 33 mmHg (35-45)
[2017-01-29 22:02] LABS: PO2 81 mmHg (80-90)
[2017-01-30 03:28] LABS: BICARBONATE 29.1 mmol/L (18.0-23.0); LACTATE 3.9 mEq/L (0.50-1.60); PO2 65 mmHg (80-90)
[2017-01-30 03:31] LABS: PCO2 40 mmHg (35-45)
[2017-01-30 03:52] LABS: ALBUMIN 2.1 gm/dL (3.5-5.0); ANION GAP 12.2 (10.0-19.0); CALCIUM 7.3 mg/dL (8.5-10.5); CREATININE 1.8 mg/dL (0.5-1.1); POTASSIUM 4.2 mMol/L (3.7-5.1); TOTAL BILIRUBIN 1.2 mg/dL (0.0-1.5)
[2017-01-30 03:53] LABS: MAGNESIUM 3.2 mg/dL (1.8-2.6)
[2017-01-30 04:14] LABS: BASOPHIL % 0.1 %; HEMATOCRIT 24.5 % (33.0-46.0); HEMOGLOBIN 8.7 g/dL (11.0-15.0); IMMATURE GRANULOCYTE # 0.3 K/uL (0.0-0.3); IMMATURE GRANULOCYTE % 1.5 %; LYMPHOCYTE # 0.6 K/uL (0.8-4.0); LYMPHOCYTE % 2.8 %; MCH 30.5 pg (27.0-34.0); MCHC 35.5 gm/dL (32.0-36.5); MONOCYTE # 0.7 K/uL (0.0-1.0); MONOCYTE % 3.3 %; NEUTROPHIL # (ANC) 20.2 K/uL (1.8-7.8); NEUTROPHIL % 92.3 %; NRBC % 3.2 /100WBC (0-0.00); RBC 2.85 M/uL (3.50-5.00); RDW-CV 17.1 % (11.9-14.6); WBC 21.8 K/uL (4.0-11.0)
[2017-01-30 04:15] LABS: PLATELET COUNT 34 K/uL (150-450)
--- NOTE | 2017-01-30 04:19 | NUR ---
Pt continued on ventilator support. Transfer from OR at start of shift. Returned to previous vent settings and weaned Fio2 to 60%. Around 2100 increased RR to 38 and Fio2 to 70%. No changes t/o rest of shift. Lung sounds slightly coarse left, clear/diminished right. No cough with sxn of scant-small clear. Sxn catheter changed this shift. Will continue to monitor
--- NOTE | 2017-01-30 05:28 | NUR ---
Significant Event: Patient Sedated on pent drip, currently infusing at 1mg/kg/hr. 50mg bolus given x3 this shift. Pupils unequal and sluggish/faintly reactive. Does not withdraw, no cough, no gag, no corneal reflex present. ICP 16-32 this shift. L)ventriculostomy draining clear csf, 24ml this shift. R)ventriculostomy draining blood-tinged csf, clearing up throughout the shift, 25ml this shift. Pbo2 >24, no complications. Sinus tachycardiac, pressors titrated to keep CPP 60-90. A/C on vent, does not overbreathe set rate of 38. ETco2 11-13. Bowel sounds absent, gastric residuals decreasing throughout shift, 475-470-125. No bm this shift. Cates intact, adequate UOP. No new or worsening skin issues. Afebrile. 23.4% saline given x1 this shift for ICP 32, RR increased to 38. Follow up: Continue
[2017-01-30 11:41] LABS: BICARBONATE 27.9 mmol/L (18.0-23.0); PCO2 45 mmHg (35-45); PO2 73 mmHg (80-90)
[2017-01-30 11:44] LABS: BILIRUBIN URINE NEGATIVE (NEGATIVE); BLOOD URINE 250 /UL (NEGATIVE); COLOR URINE STRAW (YELLOW); GLUCOSE URINE 250 mg/dL (NEGATIVE); KETONE URINE NEGATIVE (NEGATIVE); LEUKOCYTES URINE 100 /UL (NEGATIVE); NITRITE URINE NEGATIVE (NEGATIVE); PROTEIN URINE 100 mg/dL (NEGATIVE); SPEC GRAVITY URINE 1.015 (1.003-1.035); TURBIDITY URINE 2+ (CLEAR); UROBILINOGEN URINE NORMAL (NORMAL)
[2017-01-30 11:46] LABS: LACTATE 4.8 mEq/L (0.50-1.60)
[2017-01-30 12:00] LABS: POTASSIUM 4.8 mMol/L (3.7-5.1)
[2017-01-30 12:09] LABS: ANION GAP 11.8 (10.0-19.0); MAGNESIUM 3.4 mg/dL (1.8-2.6)
[2017-01-30 12:12] LABS: BACTERIA URINE RARE (NEGATIVE); EPITHELIAL URINE NEGATIVE #/HPF (NEGATIVE); RBC URINE 0-2 #/HPF (NEGATIVE); YEAST URINE MODERATE (NEGATIVE)
[2017-01-30 16:35] LABS: BICARBONATE 27.9 mmol/L (18.0-23.0); PCO2 43 mmHg (35-45); PO2 62 mmHg (80-90)
[2017-01-30 16:42] LABS: LACTATE 4.7 mEq/L (0.50-1.60)
[2017-01-30 16:48] LABS: ALBUMIN 2.2 gm/dL (3.5-5.0); CO2 27 mMol/L (22-32); PHOSPHORUS 4.2 mg/dL (2.5-4.9); POTASSIUM 5.4 mMol/L (3.7-5.1)
[2017-01-30 16:49] LABS: ANION GAP 13.4 (10.0-19.0); BLOOD UREA NITROGEN 54 mg/dL (6-24); CALCIUM 7.4 mg/dL (8.5-10.5); CHLORIDE 126 mMol/L (96-110); CREATININE 2.8 mg/dL (0.5-1.1); MAGNESIUM 3.7 mg/dL (1.8-2.6); SODIUM 161 mMol/L (135-145)
--- NOTE | 2017-01-30 17:53 | NUR ---
SIGNIFICANT EVENT: PATIENT ON PENTOBARBITAL DRIP AT 1 MCG/KG/HR. PATIENT DOES NOT OPENE EYES TO VOICE, SPONT, OR TO PAIN. PATIENT DOES NOT TILT HEAD TOWARDS VOICE, DOES NOT NOD YES/NO, DOES NOT FOLLOW ANY COMMANDS. PATIENT DOES NOT WITHDRAW TO PAIN IN ANY OF THE 4 EXTREMITIES. ICP/VENTRIC X2/ BOLT INTACT, NO INCREASE IN DRAINAGE AROUND SITE. ICP 19-30 THIS SHIFT, MD AWARE. R) AND L) VENTRIC AT 8CM H2O ABOVE, OPEN AT ALL TIMES. TOTAL OF 72 ML OF CLEAR CSF DRAINED THIS SHIFT. CT OF HEAD COMPLETED TODAY, DR CROCKER AND DR PITTMAN AWARE OF RESULTS. LICOX STOPPED WORKING AROUND 1200, MD AWARE, ATTEMPTED TO TROUBLE SHOOT WITH REP, UNSUCCESSFUL. PATIENT DOES NOT HAVE GAG, COUGH, OR CORNEAL REFLEX. PATIENT HAS BEEN IM SINUS TACHY, HR 100-110S. PULSES PALPABLE THROUGHOUT. SIGNIFICANT EDEMA PRESENT. BP STABLE WHILE ON 0.4 MCG/KG/MIN OF LEVOPHED. VASOPRESSIN TITRATED TO OFF. KIRSTIN DRIP CONTINUES OFF. MAP>65 AT ALL TIMES. CPP 60-80S RANGE. AFEBRILE. PATIENT CONINTUES TO REQUIRE VENT SUPPORT, FIO2 INCREASED TO 90%, RR 38 DOES NOT OVER BREATH, TV 550, PEEP 5. ETCO2 14-16S. L) CHEST TUBE PLACED AT BEDSIDE, NO COMPLICATIONS. 80 OF BLOOD TINGED OUTPUT. LICOX MONITOR NOT WORKING, MD AWARE. BOWEL SOUNDS RARE-ABSENT. OG INFUSING OSMOLITE AT 30ML/HR, MAX RESIDUAL 200. ACCU CHECKS EVERY 4 HOURS, TREATED PER AGGRESSIVE SLIDING SCALE. VARMA INTACT, SIGNIFICANT DECREASE IN URINE OUTPUT, MD AWARE. NEPHROLOGY CONSULT. BLADDER PRESSURE CHECKED 9, MD AWARE. UA AND URINE CULTURE COMPLTED TODAY. NO NEW SKIN ISSUES NOTED. PARTIAL BATH COMPLETED. REPOSITION EVERY 2 HOURS. R) IJ INFUSING PENTOBARBITAL AND LEVOPHED AND CVP, NO COMPLICATIONS. CONCENTRATED SALINE GIVEN X1 TODAY FOR ELEVATED ICP. PATIENT DOWN TO OR FOR R) DECOMPRESSIVE CRANIOTOMY AT 1730. FOLLOW UP: CONTINUE TO MONITOR, REPORT ALL ABNORMALITIES RANGE
[2017-01-30 22:52] LABS: BICARBONATE 27.9 mmol/L (18.0-23.0); PCO2 43 mmHg (35-45); PO2 68 mmHg (80-90)
[2017-01-30 23:04] LABS: ANION GAP 12.7 (10.0-19.0); POTASSIUM 5.7 mMol/L (3.7-5.1)
[2017-01-30 23:16] LABS: PCO2 44 mmHg (35-45); PO2 68 mmHg (80-90)
[2017-01-30 23:17] LABS: BICARBONATE 27.7 mmol/L (18.0-23.0); POTASSIUM 5.2 mEq/L (3.7-5.1); SODIUM 155 mEq/L (135-145)
[2017-01-31 03:55] LABS: BICARBONATE 28.9 mmol/L (18.0-23.0); PCO2 50 mmHg (35-45); PO2 80 mmHg (80-90)
[2017-01-31 03:58] LABS: LACTATE 4.1 mEq/L (0.50-1.60)
[2017-01-31 04:11] LABS: ALBUMIN 2.1 gm/dL (3.5-5.0); CREATININE 3.8 mg/dL (0.5-1.1); PHOSPHORUS 3.9 mg/dL (2.5-4.9)
[2017-01-31 04:13] LABS: ANION GAP 13.7 (10.0-19.0); CALCIUM 7.4 mg/dL (8.5-10.5); MAGNESIUM 3.9 mg/dL (1.8-2.6); POTASSIUM 5.7 mMol/L (3.7-5.1); TOTAL BILIRUBIN 0.5 mg/dL (0.0-1.5)
[2017-01-31 04:20] LABS: HEMATOCRIT 20.5 % (33.0-46.0); MCH 30.2 pg (27.0-34.0); MCHC 34.1 gm/dL (32.0-36.5); MCV 88.4 fl (83.0-98.0); MPV 10.3 fl (9.4-12.4); PLATELET COUNT 62 K/uL (150-450); RBC 2.32 M/uL (3.50-5.00); RDW-CV 17.9 % (11.9-14.6)
[2017-01-31 04:22] LABS: WBC 16.2 K/uL (4.0-11.0)
--- NOTE | 2017-01-31 04:22 | NUR ---
Significant Event: Patient continues on pent drip at 1mg/kg/hr. Pupils sluggish / unequal at times. No neuro changes from previous night. R)bone flap removed in OR this shift, fiberoptic ICP in place in R)temporal space. Patient now has bilateral bone flaps removed. L)EVD intact, open continuously draining clear csf. ICP 11-15. Sinus tach, 100s. Levophed titrated to keep CPP 60-90 with no complications. Continues on ventilator, RR increased to 40 prior to return from surgery. etco2 13-16. L)chest tube intact, serosanguenous drainage 82ml. Bowel sounds absent, abdomen distended. Gastric residuals 0 this shift. Patient reported to have small bowel movement post surgery by OR staff. Cates intact, low UOP. Bumex drip infusing at 1mg/hr. Surgical incisions covered. Afebrile. Follow up: Continue.
--- NOTE | 2017-01-31 05:26 | NUR ---
PT. RETURNED TO ICU AT 2158. RR UP TO 40. FIO2 UP TO 100% WITH SATS 93-94%. SUCTIONED A SMALL AMOUNT OF FROTHY SECRETIONS. ETCO2 14-16. BREATH SOUNDS ARE COARSE T/O. WILL CONTINUE TO MONITOR UNTIL FURTHER NOTICE.
[2017-01-31 06:11] LABS: ABSOLUTE NEUTROPHIL CT (ANC) 14.1 K/uL (1.8-7.8); BANDED NEUTROPHIL # 3.9 K/uL (0.0-0.1); BANDED NEUTROPHILS % 24 %; LYMPHOCYTE # 1.1 K/uL (0.8-4.0); LYMPHOCYTE % 7 %; SEGMENTED NEUTROPHIL # 10.2 K/uL (1.8-7.8); SEGMENTED NEUTROPHIL % 63 %
--- NOTE | 2017-01-31 09:01 | NUR ---
A - NUTRITION F/U. ON VENT SEDATED ON PENT. NA+ 160, K+ 5.7, GLU 230, BUN/ADON 68/3.8, ALB 2.1,
--- NOTE | 2017-01-31 09:02 | NUR ---
A - NUTRITION F/U. ON VENT SEDATED W/ PENT. NA+ 160, K+ 5.7, GLU 230, BUN/FOOD AND BEVERAGE ORDER CLERK 68/3.8, ALB 2.1, WBC 16.2, H/H 7.0/20.5. WT 211#, UP 40# SINCE ADMISSION. UOP SIGNIFICANTLY DECREASED; EDEMA INCREASED TO 2-3+ BUE, 2-3+ TO FEET AND ANKLES. ODALIS BONE FLAPS REMOVED. TF OSMOLITE 1.5 AT 30 ML/HR WELL TOLERATED AT THIS TIME. D - AT RISK W/ INADEQUATE ORAL INTAKE R/T RELIANCE ON VENT AEB EN. I - GOAL: TO MEET NEEDS VIA EN. M/E - 1) REC CHANGING TF TO NEPRO TO DECREASE FLUID VOLUME; GOAL RATE FOR NEPRO IS 45 ML/HR = 1944 KCALS, 87 GM PROTEIN, 785 ML FREE H20. 2) WILL F/U IN 2-3 DAYS.
[2017-01-31 12:51] LABS: BICARBONATE 28.5 mmol/L (18.0-23.0); PCO2 54 mmHg (35-45); PO2 80 mmHg (80-90)
[2017-01-31 13:41] LABS: POTASSIUM 5.2 mMol/L (3.7-5.1)
[2017-01-31 13:45] LABS: ANION GAP 16.2 (10.0-19.0); MAGNESIUM 4.3 mg/dL (1.8-2.6)
[2017-01-31 15:45] LABS: POTASSIUM 5.2 mMol/L (3.7-5.1)
--- NOTE | 2017-01-31 18:58 | NUR ---
SIGNIFICANT EVENT: PATIENT ON PENTOPARBITAL DRIP AT 1 MCG/KG/HR. DOES NOT OPEN EYES TO VOICE, PAIN, OR SPOMJT. DOES NOT WITHDRAW TO PAIN. DOES NOT FOLLOW ANY COMMANDS. ICP VENTRIC INTACT THROUGHOUT THE SHIFT, SLIGHT INCREASE IN SATURATION OF DRESSING, REPORTED TO DR. PITTMAN. ICP FROM [id number] BELOW 20, 1600 24 RANGE, [id number] 28-30S RANGE, DR PITTMAN, DR CHAVEZ, AND DR BONE AWARE AND NOTIFIED. FAMILY MEETING INITIATED REGARDING PLAN OF CARE AT [address] FAMILY AND DR PITTMAN AND DR BONE. EVD WAS AT 10 CM H2O ABOVE AUD CANAL THROUGHOUT THE SHIFT TOTAL OF 73 ML OF CSF DRAINED THIS SHIFT, CLEAR CSF. NOW EDV BELOW AUD CANAL, PER DR BONE ORDER, NO DRAINAGE. NO SPONT MOVEMENTS OBSERVED. PENTOBARBITAL BOLUS GIVEN X2 FOR INCREASED ICP, NO RESPONSE. PATIENT HAS BEEN IN SINUS TACHY RHYTHM, HR 100-110S. PULSES PALPABLE THROUGHOUT. EDEMA PRESENT THROUGHOUT. BP HAD BEEN STABLE THROUGHOUT THE SHIFT, SBP>90, MAP>65, CPP 60-70S WHILE ON LEVOPHED AT 0.18 MCG/KG/MIN. LOW TEMP, 95-96 RANGE, DR CROCKER, DR PITTMAN, DR BONE, AND DR CHAVEZ NOTIFIED AND AWARE. NO SPONT COUGH, GAG OR INDUCED. PATIENT CONTINUES TO REQUIRE VENT SUPPORT, ALC MODE. RR 40, DOES NOT OVER BREATH. PEEP 5, TV 550. SATS 90-93%, 100% FIO2. ETCO2 14-16. BOWEL SOUNDS RARE, NO BM TODAY. TUBE FEEDING CHANGED TO NEPRO NOW AT 30ML/HR NO RESIDUALS. BUMEX DRIP OFF. LOW URINE OUTPUT. NXSTAGE STARTED THIS SHIFT, CURRENTLY AT NET LOSS GOAL OF 50, PLAN TO POSSIBLE DISCONTINUE DIALYSIS ( FAMILY IS DISCUSSING WITH [facility]). NO COMPLICATIONS WITH DIALYSIS. NO NEW SKIN ISSUES NOTED. REPOSITONED EVERY 2 HOURS. R) DIALYSIS PORT INSERTED TODAY, L) SUBCLAVIAN QUAD LUMEN IV, NO ISSUES. DR. BONE, ZAIN WEEKS DR ISLAM AWARE AND AT BEDSIDE WHILE ICP AT THE END OF SHIFT HIGH 30S. FOLLOW UP:
[2017-01-31 20:02] LABS: BICARBONATE 30.1 mmol/L (18.0-23.0); LACTATE 2.5 mEq/L (0.50-1.60); PCO2 57 mmHg (35-45); PO2 64 mmHg (80-90)
[2017-01-31 20:19] LABS: ALBUMIN 2.4 gm/dL (3.5-5.0); CALCIUM 8.2 mg/dL (8.5-10.5); PHOSPHORUS 3.2 mg/dL (2.5-4.9); POTASSIUM 5.2 mMol/L (3.7-5.1)
[2017-01-31 20:20] LABS: ANION GAP 12.2 (10.0-19.0); MAGNESIUM 3.5 mg/dL (1.8-2.6)
[2017-02-01 04:00] LABS: BICARBONATE 28.7 mmol/L (18.0-23.0); PCO2 52 mmHg (35-45); PO2 61 mmHg (80-90)
[2017-02-01 04:15] LABS: INR - (THERAPEUTIC) 1.34 (0.92-1.07); PROTIME 14.1 SECONDS (9.8-11.4); PTT 26 SECONDS (25-32)
[2017-02-01 04:21] LABS: ALBUMIN 2.3 gm/dL (3.5-5.0); CALCIUM 8.2 mg/dL (8.5-10.5); CREATININE 2.6 mg/dL (0.5-1.1); PHOSPHORUS 2.4 mg/dL (2.5-4.9); TOTAL BILIRUBIN 0.6 mg/dL (0.0-1.5); TOTAL PROTEIN 5.3 g/dL (6.0-8.4)
[2017-02-01 04:27] LABS: ANION GAP 10.6 (10.0-19.0); MAGNESIUM 3.2 mg/dL (1.8-2.6); POTASSIUM 5.6 mMol/L (3.7-5.1)
[2017-02-01 04:31] LABS: HEMATOCRIT 20.6 % (33.0-46.0); MCV 89.2 fl (83.0-98.0); RBC 2.31 M/uL (3.50-5.00)
[2017-02-01 04:37] LABS: HEMOGLOBIN 7.1 g/dL (11.0-15.0); MCH 30.7 pg (27.0-34.0); MCHC 34.5 gm/dL (32.0-36.5); PLATELET COUNT 41 K/uL (150-450); WBC 22.7 K/uL (4.0-11.0)
[2017-02-01 05:23] LABS: ABSOLUTE NEUTROPHIL CT (ANC) 21.1 K/uL (1.8-7.8); BANDED NEUTROPHIL # 7.3 K/uL (0.0-0.1); BANDED NEUTROPHILS % 32 %; LYMPHOCYTE # 1.6 K/uL (0.8-4.0); LYMPHOCYTE % 7 %; SEGMENTED NEUTROPHIL # 13.9 K/uL (1.8-7.8); SEGMENTED NEUTROPHIL % 61 %
--- NOTE | 2017-02-01 05:41 | NUR ---
Significant Event: Patient continues on pentobarbital drip decreased to 0.8mg/kg/hr this shift. Family meeting conducted by Dr. Posey and Dr. Castillo this shift regarding lack of options available. ICP elevated to 122 currently. L)ventriculostomy in place with 41ml of blood tinged csf drained this shift. SR-ST, BP titrated with levophed currently at 0.4mcg/kg/min, CPP <60 since 2200 , Dr. Posey aware. A/C on ventilator, PEEP increased to 8 this shift. Bowel sounds absent/rare, no gastric residuals, nepro now at goal of 45ml/hr. No bm this shift. Cates intact, little UOP. CRRT continues, restarted x1 this shift d/t filter clotted. Currently not pulling fluid per Dr. Posey. Patient +2446ml. for past 24hrs. 3% saline continues at 95ml/hr. Follow up: Continue
--- NOTE | 2017-02-01 16:59 | NUR ---
PATIENT WAS VENTED ON 100%, PATIENT WAS TAKEN FOR A CEREBRAL FLOW STUDY AROUND 1045 AND GOT BACK TO ROOM AROUND 1135, WE CONTINUALLY HAD ISSUES WITH PATIENTS SATS, PATIENT DID END UP PASSING AWAY AND VENT WAS TAKEN OFF AT 1313,
== END 2017-02-01 13:03 | disposition expired | DRG 955 ==
LOC: GACC 04:20 → GICU 06:08
PROVIDERS: Anesthesiology; Emergency Medicine; Internal Medicine Nephrology; Neurological Surgery; ADMIT Surgery
PROC: 02HV33Z Insertion of Infusion Device into Superior Vena Cava, Percutaneous Approach (ICD-10-PCS; principal; 2017-01-26)
PROC: 00H032Z Insertion of Monitoring Device into Brain, Percutaneous Approach (ICD-10-PCS; principal; 2017-01-26)
PROC: 4A103BD Monitoring of Intracranial Pressure, Percutaneous Approach (ICD-10-PCS; principal; 2017-01-26)
PROC: 009600Z Drainage of Cerebral Ventricle with Drainage Device, Open Approach (ICD-10-PCS; principal; 2017-01-26)
PROC: 03HY32Z Insertion of Monitoring Device into Upper Artery, Percutaneous Approach (ICD-10-PCS; principal; 2017-01-26)
PROC: 5A1955Z Respiratory Ventilation, Greater than 96 Consecutive Hours (ICD-10-PCS; 2017-01-26)
PROC: 00N00ZZ Release Brain, Open Approach (ICD-10-PCS; 2017-01-26)
PROC: 2W6LX0Z Traction of Right Lower Extremity using Traction Apparatus (ICD-10-PCS; 2017-01-26)
PROC: 00C40ZZ Extirpation of Matter from Intracranial Subdural Space, Open Approach (ICD-10-PCS; 2017-01-26)
PROC: 00Q20ZZ Repair Dura Mater, Open Approach (ICD-10-PCS; 2017-01-26)
PROC: 0B9J8ZX Drainage of Left Lower Lung Lobe, Via Natural or Artificial Opening Endoscopic, Diagnostic (ICD-10-PCS; 2017-01-26)
PROC: 0B9F8ZX Drainage of Right Lower Lung Lobe, Via Natural or Artificial Opening Endoscopic, Diagnostic (ICD-10-PCS; 2017-01-26)
PROC: 0B9H8ZX Drainage of Lung Lingula, Via Natural or Artificial Opening Endoscopic, Diagnostic (ICD-10-PCS; 2017-01-26)
PROC: 0B9G8ZX Drainage of Left Upper Lung Lobe, Via Natural or Artificial Opening Endoscopic, Diagnostic (ICD-10-PCS; 2017-01-26)
PROC: 0B9D8ZX Drainage of Right Middle Lung Lobe, Via Natural or Artificial Opening Endoscopic, Diagnostic (ICD-10-PCS; 2017-01-26)
PROC: 009630Z Drainage of Cerebral Ventricle with Drainage Device, Percutaneous Approach (ICD-10-PCS; 2017-01-26)
PROC: 30233N1 Transfusion of Nonautologous Red Blood Cells into Peripheral Vein, Percutaneous Approach (ICD-10-PCS; 2017-01-26)
PROC: 30233R1 Transfusion of Nonautologous Platelets into Peripheral Vein, Percutaneous Approach (ICD-10-PCS; 2017-01-27)
PROC: 30233K1 Transfusion of Nonautologous Frozen Plasma into Peripheral Vein, Percutaneous Approach (ICD-10-PCS; 2017-01-27)
PROC: 009600Z Drainage of Cerebral Ventricle with Drainage Device, Open Approach (ICD-10-PCS; 2017-01-29)
PROC: 30233N1 Transfusion of Nonautologous Red Blood Cells into Peripheral Vein, Percutaneous Approach (ICD-10-PCS; 2017-01-29)
PROC: 30233R1 Transfusion of Nonautologous Platelets into Peripheral Vein, Percutaneous Approach (ICD-10-PCS; 2017-01-29)
PROC: 00N00ZZ Release Brain, Open Approach (ICD-10-PCS; 2017-01-30)
PROC: 00H032Z Insertion of Monitoring Device into Brain, Percutaneous Approach (ICD-10-PCS; 2017-01-30)
PROC: 00P Central Nervous System and Cranial Nerves, Removal (ICD-10-PCS; 2017-01-30)
PROC: 4A103BD Monitoring of Intracranial Pressure, Percutaneous Approach (ICD-10-PCS; 2017-01-30)
PROC: 0W9B30Z Drainage of Left Pleural Cavity with Drainage Device, Percutaneous Approach (ICD-10-PCS; 2017-01-30)
PROC: 30233N1 Transfusion of Nonautologous Red Blood Cells into Peripheral Vein, Percutaneous Approach (ICD-10-PCS; 2017-01-30)
PROC: 30233R1 Transfusion of Nonautologous Platelets into Peripheral Vein, Percutaneous Approach (ICD-10-PCS; 2017-01-30)
PROC: 00U20JZ Supplement Dura Mater with Synthetic Substitute, Open Approach (ICD-10-PCS; 2017-01-30)
PROC: 02HV33Z Insertion of Infusion Device into Superior Vena Cava, Percutaneous Approach (ICD-10-PCS; 2017-01-31)
PROC: 5A1D00Z (ICD-10-PCS; 2017-01-31)
PROC: 30233N1 Transfusion of Nonautologous Red Blood Cells into Peripheral Vein, Percutaneous Approach (ICD-10-PCS; 2017-01-31)
PROC: 30233R1 Transfusion of Nonautologous Platelets into Peripheral Vein, Percutaneous Approach (ICD-10-PCS; 2017-01-31)
DX: S02.0XXA Fracture of vault of skull, initial encounter for closed fracture (principal); S72.8X1A Other fracture of right femur, initial encounter for closed fracture; S06.6X9A Traumatic subarachnoid hemorrhage with loss of consciousness of unspecified duration, initial encounter; N17.0 Acute kidney failure with tubular necrosis; T79.4XXA Traumatic shock, initial encounter; S32.019A Unspecified fracture of first lumbar vertebra, initial encounter for closed fracture; J69.0 Pneumonitis due to inhalation of food and vomit; J96.01 Acute respiratory failure with hypoxia; J96.02 Acute respiratory failure with hypercapnia; D68.9 Coagulation defect, unspecified; S32.029A Unspecified fracture of second lumbar vertebra, initial encounter for closed fracture; S32.039A Unspecified fracture of third lumbar vertebra, initial encounter for closed fracture; S27.322A Contusion of lung, bilateral, initial encounter; D62 Acute posthemorrhagic anemia; E87.0 Hyperosmolality and hypernatremia; S37.011A Minor contusion of right kidney, initial encounter; J93.9 Pneumothorax, unspecified; E27.40 Unspecified adrenocortical insufficiency; E87.2 Acidosis; T79.7XXA Traumatic subcutaneous emphysema, initial encounter; E87.8 Other disorders of electrolyte and fluid balance, not elsewhere classified; S06.4X9A Epidural hemorrhage with loss of consciousness of unspecified duration, initial encounter; I95.9 Hypotension, unspecified; D69.6 Thrombocytopenia, unspecified; K58.9 Irritable bowel syndrome, unspecified; S06.1X9A Traumatic cerebral edema with loss of consciousness of unspecified duration, initial encounter; V48.6XXA Car passenger injured in noncollision transport accident in traffic accident, initial encounter; R40.2431 Glasgow coma scale score 3-8, in the field [EMT or ambulance]; R73.9 Hyperglycemia, unspecified; G93.2 Benign intracranial hypertension; E87.6 Hypokalemia; R00.0 Tachycardia, unspecified
CPT/HCPCS: A4725; A9539; C1751; C1887; G0480; J0171; J0610; J0690; J1165; J1720; J1940; J1956; J2150; J2370; J2515; J2543; J2560; J2597; J2930; J3010; J3370; J3475; J3480; J7030; J7040; J7050; J7060; P9016; P9017; P9035; P9045; Q9967